=== PATIENT | male | born 1965 | race Caucasian/White ===

== ENCOUNTER 2016-09-09 19:46 | Emergency (ER) | payer OTHER ==
[~2016-09-09 19:46] MED LIST: COUMADIN5 MG PO; LOVENOX100 MG/ML SC; PERCOCET1 TA1 PO
--- NOTE | 2016-09-09 21:54 | ED NURSING NOTES ---
Clinical Report - Nurses [facility] [place] [address] 09/09/2016 19:47 Patient: RIGO LR TRIAGE Triage time 19:50 Sep 09 2016. Chief Complaint: LEFT LOWER EXTREMITY PAIN. Location of symptoms- (PT reports pain to left leg x 4-5 months, hx of dvt/PE, pt went off warfarin - months ago, left leg is red from ankle to groin with pain). Alert. No acute distress. SEPSIS SCREEN: Sepsis Screen. Negative (no infection suspected/documented). SUKHDEV COMA SCORE: [place] Coma Scale: 15- eyes open spontaneously (4); best verbal response- oriented x 4 (5); best motor response- obeys commands (6). --19:56 Denisha Gonzáles R.N. 19:50 09/09/16. BP: 133/74. HR: 92. RR: 17. O2 saturation: 95%. Temp: 97.9 F. Pain level now: 8/10. --19:56 Denisha Gonzáles R.N. Weight: 90.7 kg stated. Height/Length: 72 inches Per Patient. BMI: 27.1. --19:52 Denisha Gonzáles R.N. Medications None. --19:54 Denisha Gonzáles R.N. Allergies No Known Drug Allergy. --19:55 Denisha Gonzáles R.N. Medication/allergy information source: the patient. --19:56 Denisha Gonzáles R.N. History Arrived by private vehicle. Historian: patient. Accompanied by family. No injury occurred. This occurred (4 - 5 months). Provoking / relieving factors: worsened by movement, flexion, standing and walking; relieved by lying down. He has had swelling and redness. No difficulty breathing. 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 SOCIAL HX: Smoker- current status unknown (cigarette). Occasional alcohol use; consumes beer. History of drug use: marijuana. No infectious disease exposure. ABUSE ASSESSMENT: No report of abuse. SELF HARM ASSESSMENT: A self harm assessment was performed. The patient answered "no" to the question "Do you have thoughts of harming or killing yourself?". FALL RISK ASSESSMENT: Fall risk assessment completed. No fall risk identified. NUTRITIONAL RISK ASSESSMENT: The nutritional risk assessment revealed no deficiencies. FUNCTIONAL ASSESSMENT: Functional assessment: no impairments noted. LEARNING NEEDS ASSESSMENT: The learning needs assessment revealed no barriers. SKIN INTEGRITY ASSESSMENT: Skin integrity risk assessment completed. No skin integrity risk identified. --19:56 Denisha Gonzáles R.N. PROBLEMS: Pulmonary Embolism. Gout. DVT - Deep Venous Thrombosis. --19:55 Denisha Gonzáles R.N. ADDITIONAL SURGERIES: Knee Surgery. --19:55 Denisha Gonzáles R.N. Interventions ID band on patient. To treatment room. --19:56 Denisha Gonzáles R.N. PHYSICAL ASSESSMENT Ambulatory to room. Patient gowned. GENERAL / NEURO / PSYCH: Oriented X 4. Alert. Appears in no acute distress. EXTREMITIES: Neuro-vascular status intact to the extremity. No lower extremity edema. Normal gait. Left thigh: swelling and erythema. Left knee: tenderness and erythema. Left leg: tenderness and erythema. Left ankle: tenderness and erythema. SKIN: Skin intact. Skin is warm and dry. --19:57 Denisha Gonzáles R.N. NURSING PROGRESS NOTES Neuro-vascular extremity check distal to injury: pulses intact, no edema, capillary refill <2 seconds and sensation intact. Patient identifiers checked. Call light placed in reach. Side rails up x 1. Bed placed in lowest position. Brakes of bed on. Patient ready for evaluation- chart flagged. Patient waiting for evaluation. --19:57 Denisha Gonzáles R.N. 20:00 09/09/2016 Site #1 started via IV in the right antecubital space with an 20g angiocath, with aseptic technique and good blood return; one attempt. Blood drawn: rainbow set. Labeled in the presence of the patient and sent to the lab. Saline lock flushed with 10 mL saline. --20:00 Jessie Marquis RBladimirN. The patient reports no complaints. --20:57 Jackeline Harrington 20:56 09/09/16. BP: 118/67. HR: 82. RR: 20. O2 saturation: 97% on room air. --20:57 JuanyJackeline 21:57 09/09/2016 Lovenox (Enoxaparin Sodium) Subcutaneous 90 mg given. Given in the right abdomen. Allergies verified and confirmed 5 rights. (Verified with ESTEFANY Viveros). --21:57 Jessie Marquis R.N. 22:12 09/09/16. BP: 116/70. HR: 84. RR: 15. O2 saturation: 97%. Pain level now: 09/14. 21:09 09/09/16. BP: 120/72. HR: 81. RR: 15. 20:56 09/09/16. BP: 118/67. HR: 82. RR: 20. O2 saturation: 97% on room air. 20:14 09/09/16. BP: 109/65. HR: 88. RR: 15. O2 saturation: 96%. 19:50 09/09/16. BP: 133/74. HR: 92. RR: 17. O2 saturation: 95%. Temp: 97.9 F. Pain level now: 10/15. --22:15 Denisha Gonzáles R.N. DISPOSITION / DISCHARGE No learning barriers present. Discharge instructions provided and reviewed with the patient. Reviewed medication(s) side effects, precautions, dosing and course information. Prescription(s) given to the patient. The patient was discharged by the physician. He was discharged home and accompanied by spouse. He left the Emergency Department ambulatory and via private vehicle. Spouse driving. ( pt dc home, enc to f/u closely as directed by MD, pt given rx, s/o and pt verbalize understanding.). --22:16 Denisha Gonzáles R.N. 22:14 09/09/16. BP: 114/64. HR: 82. RR: 15. O2 saturation: 97%. Pain level now: 07/15. --22:16 Denisha Gonzáles R.N. Locked/Released at 09/11/2016 7:21 by Denisha Gonzáles R.N.
--- NOTE | 2016-09-09 21:54 | ED ORDER SUMMARY ---
..... Patient: RIGO LR OrderSheet [facility] VisitID: [id number] [place] [address] 50y, M Registration Date/Time: 09/09/2016 ORDER SHEET Weight: 90.7 kg (stated) Allergies: No Known Drug Allergy GENERAL ORDERS: US Venous Left Urgent (19:51 09/09/2016 Milla ARTEAGA) (Ack 19:59 AMcQuoid ER Tech1) (21:51 MCampbell) CBC w Diff Urgent (20:58 09/09/2016 Milla ARTEAGA) (Ack 21:00 AMcQuoid ER Tech1) (21:49 JSanders R.N.) CMP Urgent (20:58 09/09/2016 Milla ARTEAGA) (Ack 21:00 AMcQuoid ER Tech1) (21:49 JSanders R.N.) MEDICATION ORDERS: Lovenox Subcut 90 mg (HIGH ALERT MEDICATION, NOW) (21:41 09/09/2016 Milla ARTEAGA) (Ack 21:52 JSanders R.N.) (21:57 JSanders R.N.) IV FLUIDS: ORDER SHEET NOTES: [Electronically signed by Leni Ramirez MD (03:41 09/11/2016)] [Electronically signed by Denisha Gonzáles R.N. (07:21 09/11/2016)] [Electronically locked/signed by Denisha Gonzáles R.N. (07:21 09/11/2016)]
--- NOTE | 2016-09-09 21:54 | ED CLINICAL REPORT ---
Clinical Report - Physicians/Mid Levels [facility] [address] [place] [address] 09/09/2016 19:47 Patient: RIGO LR Time Seen: 19:50. Arrived- By private vehicle. Historian- patient. HISTORY OF PRESENT ILLNESS Chief Complaint: LOWER EXTREMITY PAIN and SWELLING. Modifying factors- worsened by standing and walking. Relieved by lying down. This started about 4 months ago, but has been worse over the past few weeks and is still present. Severity is described as being moderate. The quality is noted to be dull. Symptoms located in the area of the left thigh and left leg. The patient has had redness and swelling. No difficulty walking. No bladder dysfunction, bowel dysfunction, sensory loss or motor loss. Patient denies an injury. Similar symptoms previously: Recent medical care: Not recently seen/assessed. REVIEW OF SYSTEMS No cough, chest pain, difficulty breathing, fever or enlarged lymph nodes. No neck pain, back pain, headache, blurred vision or sore throat. No abdominal pain, vomiting, diarrhea, black stools or difficulty with urination. No bloody stools. The patient has had skin rash. All systems otherwise negative, except as recorded above. PAST HISTORY Problems: Pulmonary Embolism. Gout. DVT - Deep Venous Thrombosis. Additional Surgeries: Knee Surgery. Medications: None. Allergies: No Known Drug Allergy. SOCIAL HISTORY Smoker- current status unknown. Alcohol use. History of drug use: marijuana. ADDITIONAL NOTES The nursing notes have been reviewed. PHYSICAL EXAM Vital Signs: 09/09/2016 19:50 BP: 133/74. HR: 92. RR: 17. O2 saturation: 95%. Temp: 97.9 F. Pain level now: 8/10. Have been reviewed. Appearance: Alert. No acute distress. Eyes: Pupils equal, round and reactive to light. Eyes normal inspection. ENT: Nose normal. Neck: Normal inspection. CVS: Normal heart rate and rhythm. Pulses normal. Strong peripheral pulses. Heart sounds normal. Respiratory: No respiratory distress. Breath sounds normal. Abdomen: Soft and nontender. Back: Normal inspection. Skin: Skin intact. Skin warm and dry. Extremities: (Pt has a broad, erythematous streak, extending from his L medial malleolar area to his groin. Mild tenderness noted. No induration.). Extremities otherwise negative. Neuro: No motor deficit. No sensory deficit. (Grossly oriented.). LABS, X-RAYS, AND EKG Pulse Oximetry: 09/09/2016 19:50 O2 saturation: 95%. (FIO2 - room air). Interpretation: normal. PROGRESS AND PROCEDURES Course of Care: Ultrasound was done of the patient's left lower extremity, and showed extensive superficial venous clotting. However the end of the clot did protrude into the deep venous space, and as such, I felt the patient should be placed back on his anticoagulant regimen and have his doctor see him again very soon. Patient was given a dose of Lovenox in the emergency department. I did give the patient prescriptions for Lovenox and Coumadin, both of which he has been on previously. I've advised him to call his doctor's office right away to set up an appointment in the next 2 days to have his INR rechecked. I have spoken with the patient regarding the extreme importance of him staying on his anticoagulant and getting help promptly if he is not feeling well. Patient and spouse counseled in person regarding the patient's stable condition, test results, diagnosis and need for follow-up. Concerns were addressed. Old medical records reviewed. Disposition: Discharged. Condition: stable. CLINICAL IMPRESSION Acute deep venous thrombosis of the left iliac and femoral vein and popliteal and tibial vein (recurrent). INSTRUCTIONS (Your ultrasound shows a blood clot extending through the superficial veins of your left leg, from the lower leg to the upper thigh. The superficial clots are not dangerous in themselves, but yours is starting to go into the deep veins now, too. Because of this, you have been restarted on Lovenox tonight, and should also start your Coumadin. Please see your doctor on Wednesday to have your INR checked, to see if your Coumadin (warfarin) dose needs to be increased. Take the Lovenox for the next several days, as directed, to keep your blood thin while the warfarin is increasing in your system.). Warnings: GENERAL WARNINGS: Return or contact your physician immediately if your condition worsens or changes unexpectedly, if not improving as expected, or if other problems arise. Prescription Medications: Lovenox 100 mg SQ. Administer every 12 hours for 5 days. Dispense ten (10) pre-filled syringes. No refills. Coumadin 2.5 mg: take 1 tablet orally every 24 hours. Dispense thirty (30). No refills. Substitution is permissible. Understanding of the discharge instructions verbalized by patient. Follow-up with: [facility], , , [address], , [place], [id number] Follow up. Call for the next available appointment. Reason for referral: Follow up ER visit for DVT. (Electronically signed by Leni Ramirez MD 09/11/2016 3:41)
--- NOTE | 2016-09-09 21:54 | ED ORDER SUMMARY ---
..... Patient: RIGO LR OrderSheet [facility] VisitID: [id number] [place] [address] 50y, M Registration Date/Time: 09/09/2016 ORDER SHEET Weight: 90.7 kg (stated) Allergies: No Known Drug Allergy GENERAL ORDERS: US Venous Left Urgent (19:51 09/09/2016 Milla ARTEAGA) (Ack 19:59 AMcQuoid ER Tech1) (21:51 MCampbell) CBC w Diff Urgent (20:58 09/09/2016 Milla ARTEAGA) (Ack 21:00 AMcQuoid ER Tech1) (21:49 JSanders R.N.) CMP Urgent (20:58 09/09/2016 Milla ARTEAGA) (Ack 21:00 AMcQuoid ER Tech1) (21:49 JSanders R.N.) MEDICATION ORDERS: Lovenox Subcut 90 mg (HIGH ALERT MEDICATION, NOW) (21:41 09/09/2016 Milla ARTEAGA) (Ack 21:52 JSanders R.N.) (21:57 JSanders R.N.) IV FLUIDS: ORDER SHEET NOTES: [Electronically signed by Leni Ramirez MD (03:41 09/11/2016)] [Electronically signed by Denisha Gonzáles R.N. (07:21 09/11/2016)] [Electronically locked/signed by Denisha Gonzáles R.N. (07:21 09/11/2016)]
--- NOTE | 2016-09-09 21:54 | ED CLINICAL REPORT ---
Clinical Report - Physicians/Mid Levels [facility] [address] [place] [address] 09/09/2016 19:47 Patient: RIGO LR Time Seen: 19:50. Arrived- By private vehicle. Historian- patient. HISTORY OF PRESENT ILLNESS Chief Complaint: LOWER EXTREMITY PAIN and SWELLING. Modifying factors- worsened by standing and walking. Relieved by lying down. This started about 4 months ago, but has been worse over the past few weeks and is still present. Severity is described as being moderate. The quality is noted to be dull. Symptoms located in the area of the left thigh and left leg. The patient has had redness and swelling. No difficulty walking. No bladder dysfunction, bowel dysfunction, sensory loss or motor loss. Patient denies an injury. Similar symptoms previously: Recent medical care: Not recently seen/assessed. REVIEW OF SYSTEMS No cough, chest pain, difficulty breathing, fever or enlarged lymph nodes. No neck pain, back pain, headache, blurred vision or sore throat. No abdominal pain, vomiting, diarrhea, black stools or difficulty with urination. No bloody stools. The patient has had skin rash. All systems otherwise negative, except as recorded above. PAST HISTORY Problems: Pulmonary Embolism. Gout. DVT - Deep Venous Thrombosis. Additional Surgeries: Knee Surgery. Medications: None. Allergies: No Known Drug Allergy. SOCIAL HISTORY Smoker- current status unknown. Alcohol use. History of drug use: marijuana. ADDITIONAL NOTES The nursing notes have been reviewed. PHYSICAL EXAM Vital Signs: 09/09/2016 19:50 BP: 133/74. HR: 92. RR: 17. O2 saturation: 95%. Temp: 97.9 F. Pain level now: 8/10. Have been reviewed. Appearance: Alert. No acute distress. Eyes: Pupils equal, round and reactive to light. Eyes normal inspection. ENT: Nose normal. Neck: Normal inspection. CVS: Normal heart rate and rhythm. Pulses normal. Strong peripheral pulses. Heart sounds normal. Respiratory: No respiratory distress. Breath sounds normal. Abdomen: Soft and nontender. Back: Normal inspection. Skin: Skin intact. Skin warm and dry. Extremities: (Pt has a broad, erythematous streak, extending from his L medial malleolar area to his groin. Mild tenderness noted. No induration.). Extremities otherwise negative. Neuro: No motor deficit. No sensory deficit. (Grossly oriented.). LABS, X-RAYS, AND EKG Pulse Oximetry: 09/09/2016 19:50 O2 saturation: 95%. (FIO2 - room air). Interpretation: normal. PROGRESS AND PROCEDURES Course of Care: Ultrasound was done of the patient's left lower extremity, and showed extensive superficial venous clotting. However the end of the clot did protrude into the deep venous space, and as such, I felt the patient should be placed back on his anticoagulant regimen and have his doctor see him again very soon. Patient was given a dose of Lovenox in the emergency department. I did give the patient prescriptions for Lovenox and Coumadin, both of which he has been on previously. I've advised him to call his doctor's office right away to set up an appointment in the next 2 days to have his INR rechecked. I have spoken with the patient regarding the extreme importance of him staying on his anticoagulant and getting help promptly if he is not feeling well. Patient and spouse counseled in person regarding the patient's stable condition, test results, diagnosis and need for follow-up. Concerns were addressed. Old medical records reviewed. Disposition: Discharged. Condition: stable. CLINICAL IMPRESSION Acute deep venous thrombosis of the left iliac and femoral vein and popliteal and tibial vein (recurrent). INSTRUCTIONS (Your ultrasound shows a blood clot extending through the superficial veins of your left leg, from the lower leg to the upper thigh. The superficial clots are not dangerous in themselves, but yours is starting to go into the deep veins now, too. Because of this, you have been restarted on Lovenox tonight, and should also start your Coumadin. Please see your doctor on Wednesday to have your INR checked, to see if your Coumadin (warfarin) dose needs to be increased. Take the Lovenox for the next several days, as directed, to keep your blood thin while the warfarin is increasing in your system.). Warnings: GENERAL WARNINGS: Return or contact your physician immediately if your condition worsens or changes unexpectedly, if not improving as expected, or if other problems arise. Prescription Medications: Lovenox 100 mg SQ. Administer every 12 hours for 5 days. Dispense ten (10) pre-filled syringes. No refills. Coumadin 2.5 mg: take 1 tablet orally every 24 hours. Dispense thirty (30). No refills. Substitution is permissible. Understanding of the discharge instructions verbalized by patient. Follow-up with: [facility], , , [address], , [place], [id number] Follow up. Call for the next available appointment. Reason for referral: Follow up ER visit for DVT. (Electronically signed by Leni Ramirez MD 09/11/2016 3:41)
--- NOTE | 2016-09-09 22:02 | DIAGNOSTIC IMAGING REPORT ---
PROCEDURE: US VENOUS - LEFT EXT INDICATION: Left leg pain and swelling. History of pulmonary embolus.. Recently discontinued Coumadin. TECHNIQUE: Color Doppler duplex imaging of the deep and superficial venous system without and with compression. COMPARISON: None. FINDINGS: There is acute occlusive venous thrombosis of the left greater saphenous vein (superficial venous system). This is associated with thrombus protruding into the left common femoral vein. The rest of the deep venous system is within normal limits and there is no evidence of occlusive deep vein thrombosis. IMPRESSION: 1. There is acute occlusive venous thrombosis of the left greater saphenous vein (superficial venous system) with thrombus protruding into the left common femoral vein. The patient is at risk for pulmonary embolus. 2. Findings discussed with Dr. Leni Ramirez.
--- NOTE | 2016-09-11 07:21 | ED DISCHARGE INSTRUCTIONS ---
Patient: RIGO LR General Instructions [facility] VisitID: [id number] [address] [place] [address] 50y, M Registration Date/Time: 09/09/2016 Acute deep venous thrombosis of the left iliac and femoral vein and popliteal and tibial vein (recurrent). INSTRUCTIONS (Your ultrasound shows a blood clot extending through the superficial veins of your left leg, from the lower leg to the upper thigh. The superficial clots are not dangerous in themselves, but yours is starting to go into the deep veins now, too. Because of this, you have been restarted on Lovenox tonight, and should also start your Coumadin. Please see your doctor on Wednesday to have your INR checked, to see if your Coumadin (warfarin) dose needs to be increased. Take the Lovenox for the next several days, as directed, to keep your blood thin while the warfarin is increasing in your system.). Warnings: GENERAL WARNINGS: Return or contact your physician immediately if your condition worsens or changes unexpectedly, if not improving as expected, or if other problems arise. Prescription Medications: Lovenox 100 mg SQ. Administer every 12 hours for 5 days. Dispense ten (10) pre-filled syringes. No refills. Coumadin 2.5 mg: take 1 tablet orally every 24 hours. Dispense thirty (30). No refills. Substitution is permissible. Understanding of the discharge instructions verbalized by patient. Follow-up with: [facility], , , [address], , [place], [id number] Follow up. Call for the next available appointment. Reason for referral: Follow up ER visit for DVT. ADDITIONAL INFORMATION Deep Vein Thrombosis Deep Vein Thrombosis (DVT) means there is a blood clot in a deep vein of the leg. This may cause redness, swelling, warmth and pain of the leg. If the blood clot grows larger, a piece may break off and go to the lungs (pulmonary embolus) or to the brain (stroke). Factors that increase risk of a DVT include: overweight, smoking, use of estrogen replacement therapy. Prolonged periods without movement (such as long distance travel, wearing a fracture cast, and prolonged bed rest after surgery or during an illness) also increases the risk of a DVT. Home Care: Stay off the affected leg as much as possible during the next week. When sitting or lying down, keep the leg elevated. Compression stockings may be advised to improve blood flow in the lower legs. When resting, move your ankles, toes and knees frequently to stimulate blood flow. You will be prescribed an anti-coagulant medicine (pills or shots). Take it exactly as directed. Follow Up with your doctor as advised. NOTE: A radiologist will review any X-rays that were taken. We will notify you of any new findings that may affect your care. Get Prompt Medical Attention if any of the following occur: Shortness of breath or painful breathing Chest pain, repeated cough or coughing up blood Fever of 100.4F (38C) or higher, or as directed by your healthcare provider Increasing swelling or increasing pain in the leg Spreading redness Unexpected bleeding (nose, gums, cuts, urinary tract, vagina, rectum) You have been given the following additional information: DVT (Electronically signed by Leni Ramirez MD 09/11/2016 3:41)
--- NOTE | 2016-09-11 07:21 | ED MED RECONCILIATION SUMMARY ---
Patient: RIGO LR Medication Reconciliation Report [facility] VisitID: [id number] [address] [place] [address] 50y, M Registration Date/Time: 09/09/2016 Weight: 90.7 kg Height/Length: 72 in. BMI: 27.1 ALLERGIES: No Known Drug Allergy The patient's Home Medications are listed below: NONE. The source(s) of the original Home Medication information: patient The following Medications were given to the patient in the Emergency Department: Lovenox [Subcutaneous] Subcutaneous 90 mg, administered: 09/09/2016 9:57:00 PM The following Medications were prescribed to the patient: Lovenox 100 mg SQ. Administer every 12 hours for 5 days. Dispense ten (10) pre-filled syringes. No refills. -- Leni Ramirez MD Coumadin 2.5 mg: take 1 tablet orally every 24 hours. Dispense thirty (30). No refills. Substitution is permissible. -- Leni Ramirez MD
--- NOTE | 2016-09-11 07:21 | ED DISCHARGE INSTRUCTIONS ---
Patient: RIGO LR General Instructions [facility] VisitID: [id number] [address] [place] [place] [address] 50y, M Registration Date/Time: 09/09/2016 Acute deep venous thrombosis of the left iliac and femoral vein and popliteal and tibial vein (recurrent). INSTRUCTIONS (Your ultrasound shows a blood clot extending through the superficial veins of your left leg, from the lower leg to the upper thigh. The superficial clots are not dangerous in themselves, but yours is starting to go into the deep veins now, too. Because of this, you have been restarted on Lovenox tonight, and should also start your Coumadin. Please see your doctor on Wednesday to have your INR checked, to see if your Coumadin (warfarin) dose needs to be increased. Take the Lovenox for the next several days, as directed, to keep your blood thin while the warfarin is increasing in your system.). Warnings: GENERAL WARNINGS: Return or contact your physician immediately if your condition worsens or changes unexpectedly, if not improving as expected, or if other problems arise. Prescription Medications: Lovenox 100 mg SQ. Administer every 12 hours for 5 days. Dispense ten (10) pre-filled syringes. No refills. Coumadin 2.5 mg: take 1 tablet orally every 24 hours. Dispense thirty (30). No refills. Substitution is permissible. Understanding of the discharge instructions verbalized by patient. Follow-up with: [facility], , , [address], , [place], [id number] Follow up. Call for the next available appointment. Reason for referral: Follow up ER visit for DVT. ADDITIONAL INFORMATION Deep Vein Thrombosis Deep Vein Thrombosis (DVT) means there is a blood clot in a deep vein of the leg. This may cause redness, swelling, warmth and pain of the leg. If the blood clot grows larger, a piece may break off and go to the lungs (pulmonary embolus) or to the brain (stroke). Factors that increase risk of a DVT include: overweight, smoking, use of estrogen replacement therapy. Prolonged periods without movement (such as long distance travel, wearing a fracture cast, and prolonged bed rest after surgery or during an illness) also increases the risk of a DVT. Home Care: Stay off the affected leg as much as possible during the next week. When sitting or lying down, keep the leg elevated. Compression stockings may be advised to improve blood flow in the lower legs. When resting, move your ankles, toes and knees frequently to stimulate blood flow. You will be prescribed an anti-coagulant medicine (pills or shots). Take it exactly as directed. Follow Up with your doctor as advised. NOTE: A radiologist will review any X-rays that were taken. We will notify you of any new findings that may affect your care. Get Prompt Medical Attention if any of the following occur: Shortness of breath or painful breathing Chest pain, repeated cough or coughing up blood Fever of 100.4F (38C) or higher, or as directed by your healthcare provider Increasing swelling or increasing pain in the leg Spreading redness Unexpected bleeding (nose, gums, cuts, urinary tract, vagina, rectum) You have been given the following additional information: DVT (Electronically signed by Leni Ramirez MD 09/11/2016 3:41)
--- NOTE | 2016-09-11 07:21 | ED MAR SUMMARY ---
..... Medication Administration Record [facility] [address] [place] [address] Patient: RIGO LR Visit ID: [id number] 50y, M Weight: 90.7 kg Height/Length: 72 in BMI: 27.1 ALLERGIES: No Known Drug Allergy Given 21:57 09/09/2016 Jessie Marquis R.N. Medication Administered: LOVENOX [SUBCUTANEOUS] (ENOXAPARIN SODIUM), Dose: 90 mg Subcutaneous. Medication Ordered: Lovenox Subcut 90 mg (HIGH ALERT MEDICATION, NOW).
--- NOTE | 2016-09-11 07:21 | ED MAR SUMMARY ---
..... Medication Administration Record [facility] [address] [place] [address] Patient: RIGO LR Visit ID: [id number] 50y, M Weight: 90.7 kg Height/Length: 72 in BMI: 27.1 ALLERGIES: No Known Drug Allergy Given 21:57 09/09/2016 Jessie Marquis R.N. Medication Administered: LOVENOX [SUBCUTANEOUS] (ENOXAPARIN SODIUM), Dose: 90 mg Subcutaneous. Medication Ordered: Lovenox Subcut 90 mg (HIGH ALERT MEDICATION, NOW).
--- NOTE | 2016-09-11 07:21 | ED MED RECONCILIATION SUMMARY ---
Patient: RIGO LR Medication Reconciliation Report [facility] VisitID: [id number] [address] [place] [address] 50y, M Registration Date/Time: 09/09/2016 Weight: 90.7 kg Height/Length: 72 in. BMI: 27.1 ALLERGIES: No Known Drug Allergy The patient's Home Medications are listed below: NONE. The source(s) of the original Home Medication information: patient The following Medications were given to the patient in the Emergency Department: Lovenox [Subcutaneous] Subcutaneous 90 mg, administered: 09/09/2016 9:57:00 PM The following Medications were prescribed to the patient: Lovenox 100 mg SQ. Administer every 12 hours for 5 days. Dispense ten (10) pre-filled syringes. No refills. -- Leni Ramirez MD Coumadin 2.5 mg: take 1 tablet orally every 24 hours. Dispense thirty (30). No refills. Substitution is permissible. -- Leni Ramirez MD
== END 2016-09-09 22:21 | disposition home or self-care (01) ==
LOC: ED SRH 19:46
DX: I82.422 Acute embolism and thrombosis of left iliac vein (principal); I82.412 Acute embolism and thrombosis of left femoral vein; I82.432 Acute embolism and thrombosis of left popliteal vein; I82.442 Acute embolism and thrombosis of left tibial vein